=== PATIENT | male | born 1960 | race Caucasian/White ===

== ENCOUNTER 2017-10-15 09:26 | Day surgery (SDC) | payer OTHER ==
[~2017-10-15] VITALS: Ht 175.3 cm; Wt 82.0 kg
[~2017-10-15 09:26] MED LIST: LUPRON DEPOT-PE30 MG; TAMS.4ER; XGEVA120 MG/1.7; XTANDI40 MG
== END 2017-10-15 11:38 | disposition home or self-care (01) ==
LOC: ORSCSDS 09:26
PROVIDERS: Internal Medicine Gastroenterology
PROC: 0DBM8ZX Excision of Descending Colon, Via Natural or Artificial Opening Endoscopic, Diagnostic (ICD-10-PCS; principal; 2017-10-15 11:00)
PROC: 0DBK8ZX Excision of Ascending Colon, Via Natural or Artificial Opening Endoscopic, Diagnostic (ICD-10-PCS; principal; 2017-10-15 11:00)
DX: Z12.11 Encounter for screening for malignant neoplasm of colon (principal); D12.2 Benign neoplasm of ascending colon; D12.4 Benign neoplasm of descending colon; K57.30 Diverticulosis of large intestine without perforation or abscess without bleeding; Z79.899 Other long term (current) drug therapy; Z85.46 Personal history of malignant neoplasm of prostate; F17.210 Nicotine dependence, cigarettes, uncomplicated
CPT/HCPCS: 88305; J1980; J7120

== ENCOUNTER → 2020-07-27 | Outpatient (CLI) | payer OTHER ==
[~2020-07-27] MED LIST changes: +DECADRON4 M1 PO; +ONDA4 PO; +SKYADERM-LP 2.1 EACH TOP; -TAMS.4ER; +TAMS.4ER PO; +THERA-D2000 UNIT PO; +XGEVA120 MG/1.1 SC; -XGEVA120 MG/1.7; -XTANDI40 MG; +XTANDI40 MG PO
== END ==
LOC: LAB SHORT 12:09
DX: Z20.828 Contact with and (suspected) exposure to other viral communicable diseases (principal)
CPT/HCPCS: U0003

== ENCOUNTER 2021-01-02 08:24 | Day surgery (SDC) | payer OTHER ==
[~2021-01-02] VITALS: Ht 175.3 cm; Wt 77.2 kg
--- NOTE | 2021-01-02 09:38 | NUR ---
Ambulatory in Day Surgery Surgical site prepped with 2% Chlorhexidine cloth wipe. Rolly Paws warming gown applied. History, Chart, Medications and Allergies reviewed before start of procedure.Lungs clear T/O to Auscultation. Patient confirms NPO status and agrees with scheduled surgery. Pre-Op teaching done. Pt verbalizes understanding. Patient States Post-Procedure ride home has been arranged. Patient reports completing Chlorhexadine shower X2 prior to admission to hospital.
--- NOTE | 2021-01-02 11:24 | NUR ---
INTO STEP FROM PACU RECIEVED REPORT AND PATIENT FROM VERNON DODSON RN. VSS DRESSING INTACT
--- NOTE | 2021-01-02 11:53 | NUR ---
Discharge instructions reviewed with patient. Patient verbalizes understanding. Copy given to patient to take home. Patient States Post-Procedure ride home has been arranged. Discharged via wheelchair to private car for ride home.
== END 2021-01-02 11:57 | disposition home or self-care (01) ==
LOC: ORSCMMR 08:24 → ORD 10:00 → ORSCMMR 11:57
DX: C61 Malignant neoplasm of prostate (principal); C79.51 Secondary malignant neoplasm of bone; Z79.899 Other long term (current) drug therapy; F17.210 Nicotine dependence, cigarettes, uncomplicated
CPT/HCPCS: 77001; C1788; J0690; J1100; J1642; J2250; J2405; J2704; J3010; J7120

== ENCOUNTER → 2022-07-08 | Outpatient (CLI) | payer OTHER ==
[2022-07-08 10:40] LABS: Bun/Creatinine Ratio 26.5 (12.0-20.0); Calcium, Blood 8.7 mg/dL (8.5-10.1); Creatinine, Blood 0.57 mg/dL (0.60-1.20); Potassium, Blood 3.7 mmol/L (3.5-5.5)
== END | disposition home or self-care (01) ==
LOC: LAB 09:05 → LAB SHORT 09:05
PROVIDERS: Internal Medicine Hematology & Oncology
DX: C61 Malignant neoplasm of prostate (principal)
CPT/HCPCS: 80048

== ENCOUNTER 2022-08-27 03:24 | Emergency (ER) | payer OTHER ==
[~2022-08-27] VITALS: Ht 170.2 cm; Wt 86.2 kg
[2022-08-27] MEDS ORDERED: OXYC5 (04:23)
[2022-08-27] MEDS ORDERED: GABA300 PO (04:24)
[2022-08-27] MEDS ORDERED: PRED20 PO (04:24)
[2022-08-27 05:00] LABS: BASOPHILS ABSOLUTE AUTO 0.01 K/mm3 (0.00-0.23); BASOPHILS PERCENT AUTO 0 % (0-2); EOSINOPHILS ABSOLUTE AUTO 0.01 K/mm3 (0.00-0.68); EOSINOPHILS PERCENT AUTO 0 % (0-6); Hematocrit 25.8 % (37.0-53.0); Hemoglobin 8.7 g/dL (13.5-17.5); IMMATURE GRAN ABSOLUTE AUTO 0.01 K/mm3 (0.00-0.10); IMMATURE GRAN PERCENT AUTO 0 % (0-1); LYMPHOCYTES ABSOLUTE AUTO 0.49 K/mm3 (0.84-5.20); LYMPHOCYTES PERCENT AUTO 8 % (21-46); MONOCYTES ABSOLUTE AUTO 0.47 K/mm3 (0.16-1.47); MONOCYTES PERCENT AUTO 7 % (4-13); Mean Corpuscular HGB 32.2 pg (26.0-34.0); Mean Corpuscular HGB Conc 33.7 g/dL (31.5-36.5); Mean Corpuscular Volume 96 fL (80-100); Mean Platelet Volume 9.7 fL (9.1-12.4); NEUTROPHILS ABSOLUTE AUTO 5.56 K/mm3 (1.96-9.15); NEUTROPHILS PERCENT AUTO 85 % (41-73); Platelet Count 136 K/mm3 (150-400); RDW Coefficient Variation 15.6 % (11.7-14.2); RDW Standard Deviation 54.6 fL (35.1-46.3); White Blood Cell Count 6.55 K/mm3 (4.00-11.30)
[2022-08-27 05:14] LABS: Albumin, Blood 2.9 g/dL (3.4-5.0); Albumin/Globulin Ratio 0.7 (0.8-1.8); Bilirubin, Total 0.4 mg/dL (0.1-1.0); Bun/Creatinine Ratio 15.1 (12.0-20.0); Calcium, Blood 8.6 mg/dL (8.5-10.1); Creatinine, Blood 0.53 mg/dL (0.60-1.20); Globulin, Blood 4.1 g/dL (2.2-4.0); Potassium, Blood 3.9 mmol/L (3.5-5.5)
--- NOTE | 2022-08-27 11:15 | NUR ---
New referral and visit requested prior to pt's transfer from ER #[id number] to [facility] in [place]. Pt has known hx of metastatic prostate CA to bone and lymph tissue. Recent onset of MARKHAM per pt report in past weeks. New findings per CT done in ER of probable metastatic lesions in brain/frontal lobe. Pt is anxious to get his wishes documented in an advanced directive he has been working on with friends, who are able to witness. We reviewed [place]'s advanced directive form also and I completed a POLST with Lio, based on his stated wishes. He is very clear that his sister, Margarita Paez, will be his surrogate/proxy medical decision maker -- [phone]. He appoints his friend, Sofie Jones -- [phone] as his secondary medical proxy if Margarita is not available. [place]ita [place] of [place]. Pt is clear that he does not want any rescusitative attempts made if he's unable to breath on his own or if he is without a viable heart rhythm. He does not desire a feeding tube or dialysis in the short or watermaster if needed to sustain life. He is clear that he suffers with significant pain due to his cancer and he does not want to artificially prolong his suffering/life. He is receptive to treatments that will alleviate pain and suffering or that will improve his current quality of life, which he states is very poor. Pt and his friends are anticipating a transfer to another acute care facility ([facility]) today to evaluate and determine additional tx options. Once new POLST was fully completed and signed, original and copies provided to pt. Copy sent to Medical records for scanning into his EMR. POLST reviewed and signed by and reviewed with RN. New code status order entered per pt's POLST and VO for DNR.
[2022-08-27] MEDS ORDERED: HYDMOR2 PO (14:05)
[2022-08-27] MEDS ORDERED: ONDA4ODT MM (14:05)
[2022-08-27] MEDS ORDERED: LEVE500 PO (14:05)
[2022-08-27] MEDS ORDERED: DEXA4 PO (14:05)
== END 2022-08-27 14:39 | disposition home or self-care (01) ==
LOC: ER 03:24
PROVIDERS: Student in an Organized Health Care Education/Training Program
DX: C79.31 Secondary malignant neoplasm of brain (principal); C61 Malignant neoplasm of prostate; H49.01 Third [oculomotor] nerve palsy, right eye; H02.409 Unspecified ptosis of unspecified eyelid; F17.210 Nicotine dependence, cigarettes, uncomplicated; Z79.899 Other long term (current) drug therapy
CPT/HCPCS: 36415; 70450; 70553; 71260; 74177; 80053; 85025; 93005; 93010; A9579; J1100; J1170; J2405; J3010; Q9967